=== PATIENT | female | born 1970 | race Hispanic/Latino ===

== ENCOUNTER 2022-10-01 14:52 | Emergency (ER) | payer OTHER ==
[~2022-10-01] VITALS: Ht 152.4 cm; Wt 61.2 kg
[2022-10-01] MEDS ORDERED: BACITRACIN 1 EACH PACKET TP ONE (15:30)
[2022-10-01] MEDS ORDERED: TETANUS/DIPHTHERIA TOXOID [ADULT] 0.5 ML VIAL IM ONE (15:30)
[2022-10-01 16:25] VITALS: BP 135/94
== END 2022-10-01 16:27 | disposition home or self-care (01) ==
LOC: EDH 14:52
DX: S10.91XA Abrasion of unspecified part of neck, initial encounter (principal); I10 Essential (primary) hypertension; X99.1XXA Assault by knife, initial encounter; Y93.89 Activity, other specified; Y92.89 Other specified places as the place of occurrence of the external cause; Y99.8 Other external cause status
CPT/HCPCS: 90471; 90714